=== PATIENT | female | born 1995 | race Caucasian/White ===

== ENCOUNTER 2018-11-02 14:36 | Emergency (ER) | payer MEDICAID ==
[~2018-11-02] VITALS: Ht 167.6 cm; Wt 118.2 kg
[~2018-11-02 14:36] MED LIST: EPIN0.3P3 IM
[2018-11-02 14:45] VITALS: BP 142/92
[2018-11-02] MEDS ORDERED: DOXY100C43 PO (15:42)
[2018-11-02] MEDS ORDERED: PRED20TA PO (15:42)
[2018-11-02] MEDS ORDERED: ALBU18HF2 INH (15:42)
== END 2018-11-02 16:02 | disposition home or self-care (01) ==
LOC: ER 14:37
DX: J02.9 Acute pharyngitis, unspecified (principal); J20.9 Acute bronchitis, unspecified; J06.9 Acute upper respiratory infection, unspecified; J32.9 Chronic sinusitis, unspecified; H11.32 Conjunctival hemorrhage, left eye; Z79.899 Other long term (current) drug therapy
CPT/HCPCS: 99283